=== PATIENT | female | born 1945 | race Caucasian/White ===

== ENCOUNTER → 2016-05-13 | Outpatient (CLI) | payer OTHER ==
--- NOTE | 2016-05-13 13:55 | US ---
Ultrasound Pelvis Complete (Transabdominal and Endovaginal) Including Duplex/Doppler Imaging History: K 59.00, constipation, and 39.41, urgency, incontinence, R 14.0, abdominal distention, Z 80. 41, family history of malignant neoplasm of the ovary. Technique: Transabdominal and endovaginal ultrasound images were obtained. Endovaginal images obtain ed for better evaluation of the uterine myometrium and adnexa. Duplex/Doppler imaging of adnexa. Findings: Uterus measures 8 x 5 x 4 cm. Endometrial thickness is 6 mm. In the right side of the fund us of the uterus there is intramural isoechoic leiomyoma measuring 1.7 x 1.7 x 1.4 cm. Right ovary measures 1.9 x 1.7 x 1.4 cm. Left ovary measures 2.2 x 1.7 x 0.9 cm. No adnexal masses. No significant free fluid in the pelvis. Color Doppler flow to both ovaries without torsion. Impression: 1. Right-sided uterine leiomyoma measuring 1.7 x 1.7 x 1.4 cm. 2. No adnexal masses or ascites. 3. Consider CT imaging if clinically indicated.
== END ==
LOC: FIMAGING 12:33
PROVIDERS: ATTEND Physician Assistant
DX: D25.9 Leiomyoma of uterus, unspecified (principal); Z80.41 Family history of malignant neoplasm of ovary

== ENCOUNTER 2016-11-04 10:46 | Day surgery (SDC) | payer OTHER ==
[2016-11-04] MEDS ORDERED: LIDOCAINE 1% 2 ML INJ ID PRN (11:26)
[2016-11-04] MEDS ORDERED: LR 1,000 ML IV ONE (11:26)
[2016-11-04 11:36] VITALS: PULSE 61
--- NOTE | 2016-11-04 12:03 | PDANEPAE ---
ANE Past Medical History - Cardiovascular History Hx Hypertension: No Hx Arrhythmias: No Hx Chest Pain: No Hx Coronary Artery / Peripheral Vascular Disease: No Hx CHF / Valvular Disease: No Hx Palpitations: No - Pulmonary History Hx COPD: No Hx Asthma/Reactive Airway Disease: No Hx Recent Upper Respiratory Infection: No Hx Oxygen in Use at Home: No Hx Sleep Apnea: No Sleep Apnea Screening Result - Last Documented: Negative - Neurologic History Hx Cerebrovascular Accident: No Hx Seizures: No Hx Dementia: No - Endocrine History Hx Diabetes: No Hypothyroid: Yes Endocrine History Comment: HYPOTHYROID - Renal History Hx Renal Disorders: No - Liver History Hx Hepatic Disorders: No - Neurological & Psychiatric Hx Hx Neurological and Psychiatric Disorders: Yes Neurological / Psychiatric History Comment: ADD. DEPRESSION - Cancer History Hx Cancer: No - Congenital Disorder History Hx Congenital Disorders: No - GI History Hx Gastrointestinal Disorders: No - Other Health History Other Health History: BENIGN ESSENTIAL TREMOR - Chronic Pain History Chronic Pain: Yes (RT BIG TOE) - Surgical History Prior Surgeries: DOUG TOTAL HIP 2006. BREAST AUGMENTATION 2013. TONSILLECTOMY. TUBAL LIGATION. LT BIG TOE ANE Review of Systems - Exercise capacity METS (RN): 4 METS ANE Patient History - Allergies Allergies/Adverse Reactions: No Known Allergies Allergy (Unverified 10/27/16 10:46) - Home Medications Home Medications: Abilify DAILY06 10/27/16 [Last Taken 11/03/16] Biest HS 10/27/16 [Last Taken 11/03/16] Herbal Drugs DAILY 10/27/16 [Last Taken 11/03/16] Levothyroxine DAILY06 10/27/16 [Last Taken 11/03/16] Propranolol HCl DAILY06 10/27/16 [Last Taken 11/03/16] Prozac 20 MG (*) DAILY06 10/27/16 [Last Taken 11/03/16] - NPO status NPO Since - Liquids (Date): 11/04/16 NPO Since - Liquids (Time): 09:00 NPO Since - Solids (Date): 11/03/16 NPO Since - Solids (Time): 18:00 - Smoking Hx Smoking Status: Former smoker ANE Labs/Vital Signs - Vital Signs Blood Pressure: 122/58 Heart Rate: 61 Respiratory Rate: 14 O2 Sat (%): 99 Height: 161.29 cm Weight: 56.699 kg ANE Physical Exam - Airway Mallampati Score: Class 2 - ASA Status ASA Status: II ANE Anesthesia Plan Anesthesia Plan: MAC
[2016-11-04] MEDS ORDERED: BUPIVACAINE 0.5% 30 ML SDV ONE (12:10)
[2016-11-04] MEDS ORDERED: ROPIVACAINE HCL 20 MG/10 ML INJ EP ONE (12:11)
[2016-11-04] MEDS ORDERED: LIDO/EPI 2% **for epidural** 20 ML SDV ONE (12:11)
[2016-11-04] MEDS ORDERED: DEXAMETHASONE 4 MG/ML VIAL ONE (12:11)
[2016-11-04] MEDS ORDERED: BACITRACIN 50,000 UNITS/10 ML SYR IRR ONE ×2 (12:11→13:37)
[2016-11-04] MEDS ORDERED: LIDOCAINE 2% 5 ML SDV ONE ×2 (12:14→13:13)
[2016-11-04] MEDS ORDERED: MIDAZOLAM 2 MG/2 ML VIAL ONE (12:16)
[2016-11-04] MEDS ORDERED: PROPOFOL/EMULSION 500 MG/50 ML BOTTLE IV ONE (12:16)
[2016-11-04] MEDS ORDERED: fentaNYL 100 MCG/2 ML INJ ONE (12:16)
--- NOTE | 2016-11-04 12:21 | PDHPUP ---
History & Physical Update H&P update statement: This history and physical update is based on an assessment of the patient which was completed after admission or registration (within 24 hours), but prior to the surgery/procedure. H&P update: no change in patient's condition since H&P completed (No change in medical history)
[2016-11-04] MEDS ORDERED: ceFAZolin 2 GM/DEXTROSE 100 ML IV ONE (12:22)
[2016-11-04] MEDS ORDERED: ROPIVACAINE HCL 150 MG/30 ML INJ ONE (12:41)
[2016-11-04] MEDS ORDERED: METOCLOPRAMIDE 10 MG/2 ML VIAL ONE (12:52)
[2016-11-04] MEDS ORDERED: LIDOCAINE 2% 100 MG/5 ML SYR ONE (13:09)
[2016-11-04] MEDS ORDERED: BUPIVACAINE 0.25% 30 ML SDV ONE (14:06)
[2016-11-04] MEDS ORDERED: NALOXONE HCL 0.4 MG/ML INJ IVP PRN (14:29)
[2016-11-04] MEDS ORDERED: DEXAMETHASONE 4 MG/ML VIAL IVP PRN (14:29)
[2016-11-04] MEDS ORDERED: LR 500 ML IV PRN (14:29)
[2016-11-04] MEDS ORDERED: PROMETHAZINE HCL 25 MG/ML INJ IVP PRN (14:29)
[2016-11-04] MEDS ORDERED: fentaNYL 100 MCG/2 ML INJ IVP PRN (14:29)
--- NOTE | 2016-11-04 14:30 | POSTANESTH ---
Post Anesthetic Evaluation Cardiovascular Status: Normal, Stable Respiratory Status: Normal, Stable Level of Consciousness/Mental Status: Can Participate in Eval, Alert and Oriented Pain Control: Adequate, Prn Tx Ordered Nausea/Vomiting Control: Adequate, Prn Tx Ordered Complications Possibly Related to Anesthesia: None Noted
--- NOTE | 2016-11-04 14:35 | POSTOPPROG ---
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 ostephytes Inf/Abcess present in the surg proc area at time of surgery?: No Depth: Deep Incisional (Fascial) EBL: Minimal Complications: none Specimen(s): white pasty substance consistent with tophi/gout
[2016-11-04 14:44] VITALS: TEMP 97.7
[2016-11-04] MEDS ORDERED: KETOROLAC 15 MG/1 ML SDV IVP ONE (14:46)
[2016-11-04] MEDS ORDERED: KETOROLAC 30 MG/1 ML SDV ONE (15:02)
[2016-11-04] MEDS ORDERED: KETOROLAC 30 MG/1 ML SDV IVP ONE (15:15)
[2016-11-04 15:20] VITALS: RESP 12
[2016-11-04 15:52] VITALS: BP 132/71; O2SAT 99
--- NOTE | 2016-11-05 09:28 | GOP ---
[f rep st] OPERATIVE REPORT DATE OF OPERATION: 11/04/2016 SURGEON: Emelia Plasencia DPM ANESTHESIA: MAC. ANESTHESIOLOGIST: Mich Lundberg MD PREOPERATIVE DIAGNOSIS: Hallux rigidus joint pain right foot. POSTOPERATIVE DIAGNOSIS: 1. Hallux rigidus joint pain right foot. 2. Gout. PROCEDURE PERFORMED: 1. Tylectomy 1st metatarsophalangeal joint. 2. Charan-implant arthroplasty procedure utilizing Cartiva right foot. FINDINGS: INDICATIONS: Joint pain, osteophytes, advanced osteoarthritis. The patient was given surgical opti ons including fusion. She elected not to proceed with a fusion, and wanted a procedure where she co uld immediately ambulate and faster recovery. Therefore, she chose the Cartiva procedure. She has been provided with all the information regarding the implant and studies. She is aware it is a newe r implant, but with a good history. Therefore, at this time she elects to proceed with the Cartiva implant on the right big toe. She understands there are no guarantees as to the outcome, and if she persists to have pain after 6 months the option of joint fusion is there. DESCRIPTION OF PROCEDURE: Patient brought into the operating room, placed on the operating table in the supine position. Intravenous sedation administered by the anesthesiologist. Posterior tibial and peripheral nerve block were obtained utilizing a total of 15 cc of a 1:1:1 mix of 1% lidocaine p makeda, 0.5% Marcaine plain, and 0.5% ropivacaine. The lower extremity was prepped and draped in usua l sterile manner. After the limb had been elevated, it was exsanguinated with an Esmarch bandage, a nd the ankle tourniquet inflated to 220 mmHg, and the procedure was begun. Webril padding utilized under the ankle cuff. Attention directed toward the dorsal medial aspect of the 1st metatarsophalangeal joint. The linear incision was created and incision carefully deepened, with care of neurovascular structures, and th en clamped and cauterized bleeders. Linear capsulotomy performed, exposing gouty tophi, with less t grant 3 mm spicules noted, and sent to pathology for gross and microscopic examination. Bony hypertro phy was noted in the dorsal medial dorsal aspect of the metatarsal head, as well as along the circum ference of the base of the proximal phalanx. The osteophytes were resected with a rongeur, sagittal saw, and then smoothing with a powered egg-shaped bur. Approximately 70% to 80% of the cartilage w as absent on the head of the 1st metatarsal and base of the proximal phalanx. There are no other si gns of gout changes, no other tophi. The bone was noted to be quite firm. Then utilizing a K-wire as an axis guide, the 1st metatarsal head was drilled in preparation for the Cartiva implant. Preop eratively x-rays were measured and intraoperatively combined it was determined the 8 mm implant woul d fit best. The wound was irrigated with bacitracin and irrigation solution, and then the 8 mm Cart callie implant was seated into the 1st metatarsal head, and was sitting 1.5 to 2 mm proud. With passiv e range of motion there was no impingement and gliding was smooth. The wound was irrigated with natalie itracin and irrigation solution. C-arm pictures taken throughout the procedure to confirm alignment and positioning. Capsule was closed with 2-0 and 3-0 Vicryl. Tourniquet was released, and a lillian l hyperemic response was noted to all digits. Subcutaneous closure achieved with 4-0 Monocryl, and skin was closed with 4-0 Prolene in a horizontal mattress and simple interrupted suture manner. [place] ssings included Xeroform, 4 x 4s, reinforced with fluff, Kee, tape, and an Olegario bandage. The patialana olson tolerated the procedure and anesthesia well and left the operating room with vital signs stable a nd vascular status intact to all digits. There were no intraoperative complications. Millie cobb s ubstance, consistent with that of gouty tophi, was sent to Pathology. Additional injectables, there was a delay in achieving numbness in her foot, and so an additional 8 cc of 0.5% Marcaine plain and 1% lidocaine plain had been injected, and an additional 5 cc, as anesthesia was still delayed, 2% X ylocaine. At the end of the procedure, prior to putting dressings on, I injected additional 5 cc of 0.25% Marcaine plain to ensure good postoperative anesthesia. In postoperative recovery the leidy wray was doing very well. Her will be providing her transportation home. She is to follow up with us in 5 days for wound check. Prognosis good. /[id number]/MODL
== END 2016-11-04 16:05 | disposition home or self-care (01) ==
LOC: FSGY 10:46
PROVIDERS: ATTEND Podiatrist
PROC: 0SRM0JZ Replacement of Right Metatarsal-Phalangeal Joint with Synthetic Substitute, Open Approach (ICD-10-PCS; principal; 2016-11-04 12:00)
DX: M20.21 Hallux rigidus, right foot (principal); M1A.9XX1 Chronic gout, unspecified, with tophus (tophi); M79.671 Pain in right foot; E03.9 Hypothyroidism, unspecified; M20.22 Hallux rigidus, left foot; M19.071 Primary osteoarthritis, right ankle and foot; M21.6X1 Other acquired deformities of right foot; M25.774 Osteophyte, right foot; G25.0 Essential tremor; Z96.643 Presence of artificial hip joint, bilateral; Z80.41 Family history of malignant neoplasm of ovary
CPT/HCPCS: 28899; C1769; J0690; J1100; J1885; J2001; J2250; J2704; J2765; J2795; J3010

== ENCOUNTER → 2017-08-12 | Outpatient (CLI) | payer OTHER | LOC: FLAB 11:12 → FIMAGING 11:12 → EDSTATUS 11:13 | PROVIDERS: ATTEND Registered Nurse | DX: J18.1 Lobar pneumonia, unspecified organism (principal); J90 Pleural effusion, not elsewhere classified ==